=== PATIENT | male | born 1975 | race Caucasian/White ===

== ENCOUNTER 2016-06-12 20:52 | Emergency (ER) | payer OTHER ==
[2016-06-12 21:09] VITALS: BP 112/73; PULSE 95; TEMP 98.1; BMI 20.4
[2016-06-12] MEDS ORDERED: IBUPROFEN 600 MG TABLET (FP) PO ONE ×2 (21:29→21:46)
[2016-06-12] MEDS ORDERED: DIPHTH,PERTUSS(ACELL),TET 0.5 ML DISP.SYRIN IM ONE (21:29)
--- NOTE | 2016-06-12 21:44 | PDOC ---
History of Present Illness - General Chief Complaint: Laceration Stated Complaint: LACERATION/ WORK RELATED Time Seen by Provider: 06/12/16 21:23 History Source: Patient Exam Limitations: No Limitations Past History - Past Medical History Allergies/Adverse Reactions: Allergies Allergy/AdvReac Type Severity Reaction Status Date / Time No Known Allergies Allergy Verified 06/12/16 21:03 Home Medications: Ambulatory Orders NK [No Known Home Medication] 06/12/16 - Psycho/Social/Smoking Cessation Hx Suicidal Ideation: No Smoking History: Current every day smoker Have you smoked in the past 12 months: Yes Number of Cigarettes Smoked Daily: 10 Information on smoking cessation initiated: No 'Breaking Loose' booklet given: 10/03/15 Hx Alcohol Use: No Drug/Substance Use Hx: No Review of Systems - Review of Systems Able to Perform ROS?: Yes Comments:: 06/12/16 21:45 GENERAL/CONSTITUTIONAL: No fever, weakness. HEAD, EYES, EARS, NOSE AND THROAT: No change in vision. No ear pain or discharge. No sore throat. CARDIOVASCULAR: No chest pain or shortness of breath. RESPIRATORY: No cough, wheezing, or hemoptysis. GASTROINTESTINAL: No abdominal pain, nausea, vomiting, diarrhea, or decreased PO intolerance. GENITOURINARY: No dysuria, frequency, or change in urination. MUSCULOSKELETAL: No joint or muscle swelling or pain. No neck or back pain. SKIN: +small laceration to bridge of the nose. NEUROLOGIC: +headache. No vertigo, loss of consciousness, or change in strength/ sensation. ENDOCRINE: No increased thirst. No abnormal weight change. HEMATOLOGIC/LYMPHATIC: No anemia, easy bleeding, or history of blood clots. ALLERGIC/IMMUNOLOGIC: No hives or skin allergy. *Physical Exam - Vital Signs Last Vital Signs Temp Pulse Resp BP Pulse Ox 98.1 F 95 H 14 112/73 98 06/12/16 21:04 06/12/16 21:04 06/12/16 21:04 06/12/16 21:04 06/12/16 21:04 - Physical Exam Comments: 06/12/16 21:46 GENERAL: Awake, alert, and fully oriented, in no acute distress. HEAD: No signs of trauma EYES: PERRLA, EOMI, sclera anicteric, conjunctiva clear ENT: Auricles normal inspection, hearing grossly normal, nares patent, oropharynx clear without exudates. NECK: Normal ROM, supple, no lymphadenopathy, JVD, or masses LUNGS: Breath sounds equal, clear to auscultation bilaterally. No wheezes, and no crackles HEART: Regular rate and rhythm, normal S1 and S2, no murmurs, rubs or gallops ABDOMEN: Soft, nontender, normoactive bowel sounds. No guarding, no rebound. No masses EXTREMITIES: Normal range of motion, no edema. No clubbing or cyanosis. No cords, erythema, or tenderness NEUROLOGICAL: Cranial nerves II through XII grossly intact. Normal speech, normal gait SKIN: Warm, Dry, normal turgor, no rashes or lesions noted. +small superficial linear ~0.5 cm laceration to bridge of nose. Procedures - Laceration/Wound Repair Nose Wound Length: to 2.5 cm Wound Explored: clean Wound's Depth, Shape: superficial Irrigated w/ Saline: Yes Wound Repaired With: Dermabond Medical Decision Making - Medical Decision Making 06/12/16 21:40 A portion of this note was documented by scribe services under my direction. I have reviewed the details of the note, within reason, and agree with the documentation with the following case summary and management plan written by me. Patient treated in the ED. Nursing notes are reviewed and incorporated into the medical decision-making. Vital signs reviewed. Peripheral IV access obtained by the nurse, laboratory studies are drawn and sent, reviewed and interpreted by myself. Vital Signs Temp Pulse Resp BP Pulse Ox 98.1 F 95 H 14 112/73 98 06/12/16 21:04 06/12/16 21:04 06/12/16 21:04 06/12/16 21:04 06/12/16 21:04 40-year-old male with no past medical history presents with superficial laceration to the bridge of the nose. 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 Patient denies loss of consciousness but reported a frontal headache. Do not take any medications. Last tetanus is unknown. Denies nausea, vomiting. Patient is neurologically intact. According to the [place] head CT rules, patient does not need a head CT. Tetanus was ordered. Wound was irrigated with 300 mL of normal saline. An attempt at the wound to further investigate demonstrates no deeper wound. The wound was appropriately cared with Dermabond. Return precautions given. Patient verbalizes understanding agrees with plan. I discussed the physical exam findings, ancillary test results and final diagnoses with the patient. I answered all of the patient's questions. The patient was satisfied with the care received and felt comfortable with the discharge plan and treatment plan. The patient will call their primary care physician within 24 hours to arrange follow-up and will return to the Emergency Department with any new, persistant or worsening symptoms. *DC/Admit/Observation/Transfer Diagnosis at time of Disposition: Laceration - Discharge Dispostion Disposition: HOME Condition at time of disposition: Stable Admit: No - Patient Instructions Printed Discharge Instructions: DI for Laceration Repair With Dermabond Additional Instructions: You have received a tetanus booster. You have had dermabonded applied. Please minimize sun exposure to minimize scarring. Take 600 mg ibuprofen every 6 hours as needed for pain. If you have uncontrollable headaches, persistent vomiting, excessive lethargy, please call your doctor or return to the ER for further evaluation.
== END 2016-06-12 21:53 | disposition home or self-care (01) ==
LOC: JER 20:52
PROC: 09QKXZZ Repair Nasal Mucosa and Soft Tissue, External Approach (ICD-10-PCS; principal; 2016-06-12)
DX: S01.21XA Laceration without foreign body of nose, initial encounter (principal); W45.0XXA Nail entering through skin, initial encounter; W27.8XXA Contact with other nonpowered hand tool, initial encounter; W22.8XXA Striking against or struck by other objects, initial encounter; Y93.H3 Activity, building and construction; Y92.89 Other specified places as the place of occurrence of the external cause; Y99.0 Civilian activity done for income or pay
CPT/HCPCS: 12011-25; 90715; 99281-25

== ENCOUNTER 2021-08-26 14:22 | Emergency (ER) | payer SELFPAY ==
[2021-08-26 14:50] VITALS: BP 111/64; PULSE 80; TEMP 97.9; BMI 23.1
[2021-08-26] MEDS ORDERED: KETOROLAC TROMETHAMINE 30 MG/1 ML VIAL IM ONE (15:52)
[2021-08-26] MEDS ORDERED: KETOROLAC TROMETHAMINE 30 MG/1 ML VIAL ONE (15:56)
== END 2021-08-26 16:03 | disposition home or self-care (01) ==
LOC: JERFT 14:22
PROC: 3E0233Z Introduction of Anti-inflammatory into Muscle, Percutaneous Approach (ICD-10-PCS; principal; 2021-08-26)
DX: M25.562 Pain in left knee (principal)
CPT/HCPCS: 73562-TC-LT-FY; 99284-25

== ENCOUNTER 2023-06-07 17:12 | Emergency (ER) | payer OTHER ==
[2023-06-07 17:29] VITALS: BP 125/69; PULSE 86; RESP 18; TEMP 98.1; BMI 21.7
[2023-06-07] MEDS ORDERED: IBUPROFEN 400 MG TABLET (FP) PO ONE (18:02)
[2023-06-07] MEDS ORDERED: ACETAMINOPHEN 500 MG TABLET (FP) ONE (18:02)
[2023-06-07] MEDS: IBUPROFEN 400 MG TABLET (FP) PO ONE (18:07)
[2023-06-07] MEDS: ACETAMINOPHEN 500 MG TABLET (FP) PO ONE (18:07)
== END 2023-06-07 19:25 | disposition home or self-care (01) ==
LOC: JERFT 17:12 → JER 17:12 → JERFT 19:25
DX: S83.91XA Sprain of unspecified site of right knee, initial encounter (principal); X50.1XXA Overexertion from prolonged static or awkward postures, initial encounter; Y99.0 Civilian activity done for income or pay
CPT/HCPCS: 73562-TC-RT-FY; 99283-25